=== PATIENT | male | born 1995 | race African-American/Black ===

== ENCOUNTER 2017-12-30 20:59 | Emergency (ER) | payer OTHER ==
[~2017-12-30] VITALS: Ht 172.7 cm; Wt 78.2 kg
[2017-12-30 23:18] VITALS: BP 137/91; PULSE 64; TEMP 97.5
== END 2017-12-30 23:19 | disposition home or self-care (01) ==
LOC: COL.ER 20:59
DX: B34.9 Viral infection, unspecified (principal); Z88.2 Allergy status to sulfonamides

== ENCOUNTER 2018-01-11 20:21 | Emergency (ER) | payer OTHER ==
[~2018-01-11] VITALS: Ht 172.7 cm; Wt 78.6 kg
[2018-01-11 20:23] VITALS: BP 121/78; PULSE 78; TEMP 97.4
== END 2018-01-11 21:11 | disposition home or self-care (01) ==
LOC: COL.ER 20:21
DX: S93.401A Sprain of unspecified ligament of right ankle, initial encounter (principal); J45.909 Unspecified asthma, uncomplicated; Z79.82 Long term (current) use of aspirin; Z88.2 Allergy status to sulfonamides; X50.0XXA Overexertion from strenuous movement or load, initial encounter; Y92.312 Tennis court as the place of occurrence of the external cause; Y93.73 Activity, racquet and hand sports